=== PATIENT | female | born 1975 | race Caucasian/White ===

== ENCOUNTER → 2021-01-12 | Outpatient (CLI) | payer OTHER | END | disposition home or self-care (01) | LOC: RAD 08:35 | PROVIDERS: ATTEND Orthopaedic Surgery | DX: S43.082A Other subluxation of left shoulder joint, initial encounter (principal); M25.512 Pain in left shoulder; M19.012 Primary osteoarthritis, left shoulder; M75.122 Complete rotator cuff tear or rupture of left shoulder, not specified as traumatic; X58.XXXA Exposure to other specified factors, initial encounter; Y93.89 Activity, other specified; Y92.89 Other specified places as the place of occurrence of the external cause; Y99.8 Other external cause status ==